=== PATIENT | male | born 1985 | race African-American/Black ===

== ENCOUNTER 2019-05-12 00:53 | Day surgery (SDC) | payer BC, SELFPAY ==
[2019-05-11 08:44] VITALS: BMI 29.5
[2019-05-12 11:40] VITALS: BP 122/94; PULSE 62; RESP 62; TEMP 36.2; O2SAT 100
--- NOTE | 2019-05-12 11:56 | WPDANESEPPF ---
Anes - Initial Pre Proc Eval Procedure: Operation Date: 05/12/19 12:45 Proposed Procedures p Colonoscopy - Francisco Dumont MD Date/Time: 05/12/19 11:56 Surgeon: Francisco Dumont MD Pre Op Diagnosis: Rectal Bleeding Patient Data Age: 34 Gender: M Height: 5 ft 8 in Weight: 88 kg Last Vital Signs Temp 97.2 F L 05/12/19 11:40 Pulse 62 05/12/19 11:40 Resp 62 H 05/12/19 11:40 BP 122/94 H 05/12/19 11:40 Pulse Ox 100 05/12/19 11:40 Allergies Allergy/AdvReac Type Severity Reaction Status Date / Time No Known Allergies Allergy Verified 05/12/19 11:39 Home Medications Medication Instructions Recorded Confirmed Type lidocaine 1 applic TOPICAL DAILY 05/11/19 05/11/19 History Patient hx anesthesia problems: none Family hx anesthesia problems: none PMFSH Past Medical History Medical History (Updated 05/12/19 @ 11:56 by Marco Randolph MD) GERD (gastroesophageal reflux disease) Hemorrhoids that prolapse with straining, but retract spontaneously High cholesterol Hyperlipidemia Slow transit constipation Social History Social History Smoking status: Never smoker Alcohol intake: current Anes - Eval Final PreProcedure Day of Procedure 05/12/19 11:56 Patient weight: normal Heart: regular rate and rhythm Lungs: clear to auscultation Airway: Mallampati scale class II Neurological: alert and oriented Last oral intake: >/= 8 hours ASA classification: II Emergent: no Anesthetic plan: proceed Anesthesia type and monitoring: general GIVS and standard monitoring Informed Consent: The patient's anesthetic plan and its attendant risks and benefits were discussed with the patient/family/POA. Questions were solicited and answers provided to the satisfaction of the patient/family/POA.
[2019-05-12] MEDS: LACTATED RINGERS 1,000 ML 150 ML IV CONT (12:04)
--- NOTE | 2019-05-12 12:50 | WPDHPUPDATE1 ---
History and Physical Update Update Date/Time: 05/12/19 12:50 History and Physical has been reviewed, including an updated exam of the patient. There are NO changes in the patient's condition. Risks, benefits, and alternatives have been discussed and questions answered. Patient agrees to proceed with procedure.
[2019-05-12 13:10] VITALS: BP 103/53; PULSE 63; RESP 26; O2SAT 97
[2019-05-12 13:20] VITALS: BP 104/59; PULSE 54; RESP 19; O2SAT 99
[2019-05-12 13:30] VITALS: BP 113/63; PULSE 55; RESP 17; O2SAT 100
[2019-05-12 13:37] VITALS: BP 120/94; PULSE 58; RESP 21; O2SAT 100
== END 2019-05-12 13:47 | disposition home or self-care (01) ==
PROVIDERS: Visit Provider Internal Medicine Gastroenterology
PROC: 0DJD8ZZ Inspection of Lower Intestinal Tract, Via Natural or Artificial Opening Endoscopic (ICD-10-PCS; CPT 45378; principal; 2019-05-12 12:45)
DX: K62.5 Hemorrhage of anus and rectum (principal); K64.8 Other hemorrhoids; E78.5 Hyperlipidemia, unspecified; K21.9 Gastro-esophageal reflux disease without esophagitis; K59.01 Slow transit constipation
CPT/HCPCS: 45378; J2704; J7120

== ENCOUNTER 2021-07-03 16:24 | Outpatient (CLI) | payer BC, SELFPAY ==
--- NOTE | ~2021-07-03 | CT_ITS ---
EXAMINATION: CT cervical spine wo con EXAM DATE: 07/03/2021 16:44 INDICATION: R20.0 - Anesthesia of skin. Numbness and tingling 2 fingers after sleep. TECHNIQUE: Spiral CT of the cervical spine was performed without contrast. Axial images were reviewe d. Coronal and sagittal reformatted images cervical spine were also reviewed. The dose-length produc t (DLP) for this examination was 405.54 mGy-cm. The exposure was tailored according to patient size (auto mA exposure control), and iterative reconstruction (ASIR) was used as additional dose reduction technique. There is no prior study for comparison. FINDINGS: Mild motion at upper cervical and lower cervical region, not significantly limiting the ex am. The vertebral bodies are aligned in the AP dimension. Vertebral body and disc heights are well-ma intained. The odontoid process is intact. The lateral masses of C1 line up with C2. Prevertebral sof t tissue and pre-dens space are within normal limits. Level by level evaluation: C2-C3: Disc does not extend beyond the endplate margin. Uncovertebral joint arthropathy: None. Facet joint arthropathy: Mild . Neural foraminal stenosis: No stenosis. Central canal stenosis: No stenosis. C3-C4: Disc does not extend beyond the endplate margin. Uncovertebral joint arthropathy: None. Facet joint arthropathy: Mild. Neural foraminal stenosis: No stenosis. Central canal stenosis: No stenosis. C4-C5: Disc does not extend beyond the endplate margin. Uncovertebral joint arthropathy: None. Facet joint arthropathy: Mild. Neural foraminal stenosis: No stenosis. Central canal stenosis: No stenosis. C5-C6: Disc does not extend beyond the endplate margin. Uncovertebral joint arthropathy: None. Facet joint arthropathy: Mild. Neural foraminal stenosis: No stenosis. Central canal stenosis: No stenosis. C6-C7: Disc does not extend beyond the endplate margin. Uncovertebral joint arthropathy: None. Facet joint arthropathy: Mild. Neural foraminal stenosis: No stenosis. Central canal stenosis: No stenosis. C7-T1: Disc does not extend beyond the endplate margin. Uncovertebral joint arthropathy: Mild right. Facet joint arthropathy: None. Neural foraminal stenosis: Mild right. Central canal stenosis: No stenosis. IMPRESSION: Mild cervical arthropathy. Reviewed, dictated and finalized at location A. IMPRESSION: Mild cervical arthropathy.
== END 2021-07-03 16:25 | disposition home or self-care (01) ==
LOC: ANHIMG 16:25
PROVIDERS: PCP Nurse Practitioner Family; Visit Provider Nurse Practitioner Family
DX: R20.0 Anesthesia of skin (principal); R20.2 Paresthesia of skin; M12.88 Other specific arthropathies, not elsewhere classified, other specified site
CPT/HCPCS: 72125